=== PATIENT | male | born 1955 | race Caucasian/White ===

== ENCOUNTER 2023-05-08 18:21 | Inpatient (IN) | payer MEDICARE, SELFPAY ==
[2023-05-08 15:09] VITALS: BP 141/79
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
[2023-05-08] MEDS: TYLENOL 1000 MG PO (16:41)
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
[2023-05-08 18:25] LABS: % Basophils 0.3 % (0-2); % Eosinophils 0.9 % (0-6); % Immature Granulocytes 0.3 % (0-0.5); % Lymphocytes 19.1 % (20.5-51.1); % Monocytes 6.3 % (1.7-9.3); % Neutrophils 73.1 % (42.2-75.2); Absolute Eosinophils 0.1 10^3/uL (0-0.7); Absolute Lymphocytes 2.2 10^3/uL (1.2-3.4); Absolute Monocytes 0.7 10^3/uL (0.1-0.6); Absolute Neutrophils 8.6 10^3/uL (1.4-6.5); Hematocrit 40.9 % (39.0-52.0); Mean Corp Hgb Conc. 36.7 g/dL (33.0-37.0); Mean Corpuscular Hgb 32.9 pg (27.0-31.0); Mean Corpuscular Volume 89.7 fL (80.0-94.0); Mean Platelet Volume 10.1 fL (7.4-10.4); Nucleated Red Blood Cells % 0 % (-); Platelet Count 181 10^3/uL (130-400); Red Blood Cell Count 4.56 10^6/uL (4.70-6.10); Red Cell Dist. Width 11.9 % (11.5-14.5); White Blood Cell Count 11.7 10^3/uL (4.8-10.8)
[2023-05-08 18:32] VITALS: BP 139/80
[2023-05-08 18:45] LABS: ALT (SGPT) 30 U/L (0-50); AST (SGOT) 31 U/L (17-59); Albumin 4.6 g/dl (3.5-5.0); Alkaline Phosphatase 82 U/L (38-126); Blood Urea Nitrogen 19 mg/dl (9-20); Calcium 9.6 mg/dl (8.4-10.2); Carbon Dioxide 24 mmol/L (22-30); Chloride 100 mmol/L (98-107); Glucose 107 mg/dl (70-99); Potassium 3.9 mmol/L (3.5-5.1); Sodium 135 mmol/L (135-145); Total Bilirubin 0.7 mg/dl (0.2-1.3); Total Protein 7.6 g/dl (6.3-8.2); eGFR > 60.00
[2023-05-08 18:56] LABS: Vitamin D, 25-OH*** 35.2 ng/mL (30-80)
[2023-05-08] MEDS: ROXICODONE 5 MG PO ×2 (19:22→22:40)
[2023-05-08 20:50] VITALS: BP 154/85; BMI 24.6
[2023-05-08] MEDS: TYLENOL 650 MG PO (21:20)
[2023-05-08] MEDS: COLACE 100 MG PO (21:20)
[2023-05-08] MEDS: SENOKOT 17.1999999999999993 MG PO (21:20)
[2023-05-08 22:40] VITALS: BP 130/70
[2023-05-09] VITALS (9 sets, daily range): BP systolic 114–130; BP diastolic 61–78
--- NOTE | 2023-05-09 01:00 | PTCARENOTE ---
Received pt from ED at 2049. Pt able to stand and pivot on L leg from stretcher to wheelchair and then from wheelchair to bed. [id number] [facility]. Oriented to room, call cancino and plan of care.
[2023-05-09] MEDS: TYLENOL PO ×2 (01:06→18:49)
[2023-05-09] MEDS: ROXICODONE 5 MG PO ×4 (04:14→21:29)
[2023-05-09] MEDS: TYLENOL 650 MG PO ×4 (04:14→18:27)
--- NOTE | 2023-05-09 04:48 | W.PN.UPDATE ---
Update Note
Progress Note Update
With R Femoral Neck fx
For surgery today
Percutaneous Screw placement
Thanks
GGMD
[2023-05-09] MEDS: COLACE 100 MG PO ×2 (08:14→19:50)
[2023-05-09] MEDS: SENOKOT 17.1999999999999993 MG PO ×2 (08:14→19:50)
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
[2023-05-09] MEDS: NORMOSOL-R 1000 IV (17:50)
[2023-05-09] MEDS: DILAUDID 0.25 MG IV ×2 (17:58→18:03)
--- NOTE | 2023-05-09 18:22 | PTCARENOTE ---
GA, 9mls EBL, RIGHT HIP PERC PINNING. to floor at 1820. regular diet. 20g RFA 100mls [id number]. Bed Low Call cancino in reach. Girlfriend Shruti in room
[2023-05-09] MEDS: ANCEF 5 IV (23:40)
[2023-05-10] MEDS: NORMOSOL-R 1000 IV (03:12)
[2023-05-10 03:13] VITALS: BP 107/60
[2023-05-10 06:27] LABS: Hematocrit 41.1 % (39.0-52.0); Hemoglobin 14.2 g/dL (13.0-18.0); Mean Corp Hgb Conc. 34.5 g/dL (33.0-37.0); Mean Corpuscular Hgb 32.3 pg (27.0-31.0); Mean Corpuscular Volume 93.4 fL (80.0-94.0); Mean Platelet Volume 10.6 fL (7.4-10.4); Platelet Count 166 10^3/uL (130-400); White Blood Cell Count 9.1 10^3/uL (4.8-10.8)
[2023-05-10 06:41] LABS: Blood Urea Nitrogen 12 mg/dl (9-20); Calcium 8.3 mg/dl (8.4-10.2); Carbon Dioxide 26 mmol/L (22-30); Chloride 106 mmol/L (98-107); Estimated Creatinine Clearance 107 ml/min; Glucose 141 mg/dl (70-99); Magnesium 2.3 mg/dl (1.6-2.3); Potassium 4.3 mmol/L (3.5-5.1); Sodium 136 mmol/L (135-145); eGFR > 60.00
--- NOTE | 2023-05-10 07:50 | W.PN.UPDATE ---
Update Note
Progress Note Update
OK for DC to home today
Full WB R LE with walker or cane
Have F/U with me as outpt in ~7-[address] on Aspirin 325 mg BID for 4 weeks for DVT prophylaxis
thanks
GGMD
[2023-05-10 08:00] VITALS: BP 140/74
[2023-05-10] MEDS: ANCEF 5 IV (08:32)
[2023-05-10] MEDS: COLACE 100 MG PO (08:33)
[2023-05-10] MEDS: SENOKOT 17.1999999999999993 MG PO (08:33)
[2023-05-10] MEDS: ASPIRIN 325 MG PO (08:33)
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
[2023-05-10 09:49] VITALS: BP 155/71; BP 161/83; PULSE 66; O2SAT 95
[2023-05-10 09:50] VITALS: BP 155/71; BP 161/83; PULSE 65; O2SAT 98
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
== END 2023-05-10 12:09 | disposition home or self-care (01) | DRG 482 ==
LOC: 2 SOUTH 18:21
PROVIDERS: Physician Assistant; ADMITTING PHYSICIAN Internal Medicine; CONSULT PHYSICIAN Orthopaedic Surgery Hand Surgery; EMERGENCY PHYSICIAN Emergency Medicine; FAMILY PHYSICIAN Physician Assistant Medical
PROC: 0QS634Z Reposition Right Upper Femur with Internal Fixation Device, Percutaneous Approach (ICD-10-PCS; 2023-05-09)
DX: S72.001A Fracture of unspecified part of neck of right femur, initial encounter for closed fracture (principal); V13.4XXA Pedal cycle driver injured in collision with car, pick-up truck or van in traffic accident, initial encounter; Y92.414 Local residential or business street as the place of occurrence of the external cause; Y93.55 Activity, bike riding; H91.90 Unspecified hearing loss, unspecified ear; R26.2 Difficulty in walking, not elsewhere classified; Z96.642 Presence of left artificial hip joint; Z96.651 Presence of right artificial knee joint
CPT/HCPCS: 72192; 73502; 76000; 80048; 80053; 82306; 83735; 85025; 85027; 97116; 97161; 97166; 97535; 99284; C1713; C1769

== ENCOUNTER → 2024-01-15 12:05 | Outpatient (REF) | payer MEDICARE, SELFPAY | LOC: RAD 12:05 | PROVIDERS: ATTENDING PHYSICIAN Physician Assistant Medical | DX: E78.2 Mixed hyperlipidemia (principal) | CPT/HCPCS: 75571 ==